=== PATIENT | male | born 1990 | race Caucasian/White ===

== ENCOUNTER 2021-04-24 21:41 | Emergency (ER) | payer OTHER ==
[2021-04-24 22:45] LABS: HEMOGLOBIN 14.7 gm/dl (14.0-17.5); RED BLOOD COUNT 5.37 M/UL (4.20-5.50)
[2021-04-24 23:05] LABS: BUN/CREATININE RATIO 11 (0-10)
[2021-04-25] MEDS ORDERED: BACTRIM DS TAB1 EACH PO (00:08)
[2021-04-25] MEDS ORDERED: CEPHALEXIN500 M1 PO (00:08)
== END 2021-04-25 00:55 | disposition home or self-care (01) ==
LOC: ER1 21:41
PROVIDERS: Physician Assistant Medical
DX: L03.313 Cellulitis of chest wall (principal); I10 Essential (primary) hypertension; F17.220 Nicotine dependence, chewing tobacco, uncomplicated
CPT/HCPCS: 80053; 85025; 99283